=== PATIENT | female | born 1995 | race Caucasian/White ===

== ENCOUNTER 2023-04-24 21:54 | Emergency (ER) | payer OTHER ==
[2023-04-24] MEDS ORDERED: ONDANSETRON 4 MG/2 ML VIAL IVP STA (22:16)
[2023-04-24] MEDS ORDERED: SODIUM CHLORIDE 0.9% 1,000 ML IV ONE (22:16)
[2023-04-24 22:30] LABS: Basophils % (A) 0 %; Eosinophils # (A) 0.1 k/uL (0-0.7); Eosinophils % (A) 1 %; HCT 41.8 % (34.0-46.0); HGB 14.6 gm/dL (11.4-16.0); Lymphocytes # (A) 2.7 k/uL (1.0-4.8); Lymphocytes % (A) 28 %; MCH 31.5 pg (25.0-35.0); Mean Platelet Volume 8.4; Monocytes # (A) 0.4 k/uL (0-1.0); Monocytes % (A) 5 %; Neutrophils # (A) 6.2 k/uL (1.3-7.7); Neutrophils % (A) 65 %; Platelet Count 221 k/uL (150-450); RBC 4.65 m/uL (3.80-5.40); RDW 11.9 % (11.5-15.5); WBC 9.6 k/uL (3.8-10.6)
[2023-04-24 22:46] LABS: ALT 12 U/L (4-34); AST 18 U/L (14-36); African American GFR (CKD) >90 (>60 ml/min/1.73 sqM); Albumin 4.7 g/dL (3.5-5.0); Alkaline Phosphatase 54 U/L (38-126); Anion Gap 10 mmol/L; Blood Urea Nitrogen 8 mg/dL (7-17); Calcium 9.7 mg/dL (8.4-10.2); Carbon Dioxide 22 mmol/L (22-30); Chloride 104 mmol/L (98-107); Glucose 95 mg/dL (74-99); Non-African American GFR(CKD) >90 (>60 ml/min/1.73 sqM); Potassium 3.7 mmol/L (3.5-5.1); Sodium 136 mmol/L (137-145); Total Bilirubin 2.6 mg/dL (0.2-1.3); Total Protein 7.4 g/dL (6.3-8.2)
[2023-04-25] LABS: Appearance,Urine Cloudy (Clear); Bacteria,Urine Occasional /hpf; Bilirubin,Urine Negative (Negative); Blood,Urine Negative (Negative); Color,Urine Light Yellow; Glucose,Urine (UA) Negative (Negative); Ketones,Urine 1+ (Negative); Leukocyte Esterase,Urine Negative (Negative); Mucus,Urine Rare /hpf; Nitrite,Urine Negative (Negative); PH, Urine 6.5 (5.0-8.0); Protein,Urine Negative (Negative); RBC,Urine 2 /hpf (0-5); Squamous Epithelial Cell,Urine 2 /hpf (0-4); Urobilinogen,Urine <2.0 mg/dL (<2.0); WBC,Urine 1 /hpf (0-5)
--- NOTE | 2023-04-25 00:26 | ED ---
General Adult HPI - General Chief complaint: Nausea/Vomiting/Diarrhea Stated complaint: 6 wks preg N/V Time Seen by Provider: 04/24/23 22:15 Source: patient, RN notes reviewed Mode of arrival: ambulatory Limitations: no limitations - History of Present Illness Initial comments: 27-year-old female with no significant past medical history presents the emergency department with chief complaint of nausea and vomiting. Patient reports worsening nausea and vomiting this afternoon. She does report that she is approximately 8 weeks with her first . She denies any fevers, chills, cough, headache, abdominal pain, visual bleeding Vaginal cramping or low back pain. Denies dysuria or hematuria. Patient scheduled to see her [employer] within a few weeks. - Related Data Previous Rx's Medication Instructions Recorded Metoclopramide HCl [Reglan] 10 mg PO TID #15 tablet 04/25/23 Allergies Allergy/AdvReac Type Severity Reaction Status Date / Time No Known Allergies Allergy Verified 04/24/23 22:13 Review of Systems ROS Statement: Those systems with pertinent positive or pertinent negative responses have been documented in the HPI. ROS Other: All systems not noted in ROS Statement are negative. Past Medical History Past Medical History: No Reported History History of Any Multi-Drug Resistant Organisms: None Reported Past Surgical History: Tonsillectomy Past Psychological History: No Psychological Hx Reported Smoking Status: Never smoker Past Alcohol Use History: None Reported Past Drug Use History: None Reported General Exam - General Exam Comments Initial Comments: General: Alert, in no acute distress Head: atraumatic normocephalic. Eyes PERRL, EOMI intact, mucous membranes moist Respiratory: Lungs clear to auscultation bilaterally Cardiovascular: Heart rate regular rate and rhythm Abdominal: Soft without guarding or rebound Extremities: Normal inspection with full range of motion and normal capillary refill Neuroogic: alert and oriented 3, CN II-XII intact, able to ambulate with steady gait Skin: warm dry and intact with normal color Limitations: no limitations Course Vital Signs 04/24/23 22:10 Temperature 98.7 F Pulse Rate 123 H Respiratory 20 Rate Blood Pressure 124/74 O2 Sat by Pulse 99 Oximetry - Reevaluation(s) Reevaluation #1: 04/25/23 00:27 Patient reevaluated and updated on results. She is agreeable with the plan for discharge home. Medical Decision Making - Medical Decision Making Was pt. sent in by a medical professional or institution ([facility], [employer], urgent care, hospital, or group home...) When possible be specific @ -[No] Did you speak to anyone other than the patient for history (EMS, parent, family, police, friend...)? What history was obtained from this source @ -[No] Did you review nursing and triage notes (agree or disagree)? Why? @ -[I reviewed and agree with nursing and triage notes] Were old charts reviewed (outside hosp., previous admission, EMS record, old EKG, old radiological studies, urgent care reports/EKG's, group home records)? Report findings @ -[No old charts were reviewed] Differential Diagnosis (chest pain, altered mental status, abdominal pain women, abdominal pain men, vaginal bleeding, weakness, fever, dyspnea, syncope, headache, dizziness, GI bleed, back pain, seizure, CVA, palpatations, mental health, musculoskeletal)? @ -[not applicable] EKG interpreted by me (3pts min.). @ -[As above] X-rays interpreted by me (1pt min.). @ -[None done] CT interpreted by me (1pt min.). @ -[None done] U/S interpreted by me (1pt. min.). @ -[None done] What testing was considered but not performed or refused? (CT, X-rays, U/S, labs)? Why? @ -[None] What meds were considered but not given or refused? Why? @ -[None] Did you discuss the management of the patient with other professionals ([facility] i.e. [facility], [employer], lab, RT, psych nurse, psychotherapist social worker, cellular tower climber, teacher, morals squad police officer, sample case porter)? Give summary @ -[No] Was smoking cessation discussed for >3mins.? @ -[No] Was critical care preformed (if so, how long)? @ -[No] Were there social determinants of health that impacted care today? How? (Homelessness, low income, unemployed, alcoholism, drug addiction, transport ation, low edu. Level, literacy, decrease access to med. care, half-way, rehab)? @ -[No] Was there de-escalation of care discussed even if they declined (Discuss DNR or withdrawal of care, Hospice)? DNR status @ -[No] What co-morbidities impacted this encounter? (DM, HTN, Smoking, COPD, CAD, Cancer, CVA, ARF, Chemo, Hep., AIDS, mental health diagnosis, sleep apnea, morbid obesity)? @ -[None] Was patient admitted / discharged? Hospital course, mention meds given and route, prescriptions, significant lab abnormalities, going to OR and other pertinent info. @ -Discharged. This is a 27-year-old female presents to the emergency department with nausea and vomiting. Patient and physical exam performed. Physical exam essentially unremarkable. Patient initially tachycardic. Lungs sounds clear to auscultation bilaterally abdomen soft and nontender. Patient had laboratory studies which were essentially unremarkable. Patient was provided with Zofran, 1 L of IV fluids with symptomatic improvement. She is provided with a prescription for Reglan. Return precautions were discussed at length. Recommend close follow-up with PCP in 1-2 days. Patient discharged in stable condition. Case is discussed with AFUA Oconnor who agrees with POC. Undiagnosed new problem with uncertain prognosis? @ -[No] Drug Therapy requiring intensive monitoring for toxicity (Heparin, Nitro, Insulin, Cardizem)? @ -[No] Were any procedures done? @ -[No] Diagnosis/symptom? @ -Nausea and vomiting Acute, or Chronic, or Acute on Chronic? @ -Acute Uncomplicated (without systemic symptoms) or Complicated (systemic symptoms)? @ -Uncomplicated Side effects of treatment? @ -[No] Exacerbation, Progression, or Severe Exacerbation? @ -[No] Poses a threat to life or bodily function? How? (Chest pain, [place], [place], pneumonia, PE, COPD, DKA, ARF, appy, cholecystitis, CVA, Diverticulitis, Homicidal, Suicidal, threat to staff... and all critical care pts) @ -Low likelihood - Lab Data Result diagrams: 04/24/23 22:22 04/24/23 22:22 Lab Results 04/24/23 04/24/23 04/24/23 Range/Units 22:22 22:22 22:22 WBC 9.6 (3.8-10.6) k/uL RBC 4.65 (3.80-5.40) m/uL Hgb 14.6 (11.4-16.0) gm/dL Hct 41.8 (34.0-46.0) % MCV 90.0 (80.0-100.0) fL MCH 31.5 (25.0-35.0) pg MCHC 35.0 (31.0-37.0) g/dL RDW 11.9 (11.5-15.5) % Plt Count 221 (150-450) k/uL MPV 8.4 Neutrophils % 65 % Lymphocytes % 28 % Monocytes % 5 % Eosinophils % 1 % Basophils % 0 % Neutrophils # 6.2 (1.3-7.7) k/uL Lymphocytes # 2.7 (1.0-4.8) k/uL Monocytes # 0.4 (0-1.0) k/uL Eosinophils # 0.1 (0-0.7) k/uL Basophils # 0.0 (0-0.2) k/uL Sodium 136 L (137-145) mmol/L Potassium 3.7 (3.5-5.1) mmol/L Chloride 104 (98-107) mmol/L Carbon Dioxide 22 (22-30) mmol/L Anion Gap 10 mmol/L BUN 8 (7-17) mg/dL Creatinine 0.67 (0.52-1.04) mg/dL Est GFR (CKD-EPI)AfAm >90 (>60 ml/min/1.73 sqM) Est GFR (CKD-EPI)NonAf >90 (>60 ml/min/1.73 sqM) Glucose 95 (74-99) mg/dL Calcium 9.7 (8.4-10.2) mg/dL Total Bilirubin 2.6 H (0.2-1.3) mg/dL AST 18 (14-36) U/L ALT 12 (4-34) U/L Alkaline Phosphatase 54 (38-126) U/L Total Protein 7.4 (6.3-8.2) g/dL Albumin 4.7 (3.5-5.0) g/dL HCG, Quant 68658.8 mIU/mL Urine Color Light Yellow Urine Appearance Cloudy H (Clear) Urine pH 6.5 (5.0-8.0) Ur Specific [place] 1.010 (1.001-1.035) Urine Protein Negative (Negative) Urine Glucose (UA) Negative (Negative) Urine Ketones 1+ H (Negative) Urine Blood Negative (Negative) Urine Nitrite Negative (Negative) Urine Bilirubin Negative (Negative) Urine Urobilinogen <2.0 (<2.0) mg/dL Ur Leukocyte Esterase Negative (Negative) Urine RBC 2 (0-5) /hpf Urine WBC 1 (0-5) /hpf Ur Squamous Epith Cells 2 (0-4) /hpf Urine Bacteria Occasional H (None) /hpf Urine Mucus Rare H (None) /hpf Disposition Clinical Impression: Nausea and vomiting during Disposition: HOME SELF-CARE Condition: Stable Instructions (If sedation given, give patient instructions): Acute Nausea and Vomiting (ED) Additional Instructions: These monitor symptoms closely and return if worsening or persistent Prescriptions: Metoclopramide HCl [Reglan] 10 mg PO TID #15 tablet Is patient prescribed a controlled substance at d/c from ED?: No Referrals: Rodrick Bertrand DO [Primary Care Provider] - 1-2 days Time of Disposition: 00:25
[2023-04-25 00:47] VITALS: BP 122/70; PULSE 80; RESP 18; TEMP 98.4
== END 2023-04-25 00:35 | disposition home or self-care (01) ==
LOC: EC 21:54 → SUPCPDRO 21:54 → EC 04-25 00:35
DX: O21.9 Vomiting of pregnancy, unspecified (principal); Z3A.01 Less than 8 weeks gestation of pregnancy
CPT/HCPCS: 36415; 80053; 85025; 84702; 99284; 96374; 96361; J2405; 81001

== ENCOUNTER 2023-09-07 21:18 | Outpatient (CLI) | payer OTHER ==
[2023-09-07] MEDS ORDERED: ONDANSETRON 4 MG/2 ML VIAL IVP STA (21:45)
[2023-09-07] MEDS: ACETAMINOPHEN TAB 325 MG TAB PO STA (21:58)
[2023-09-07] MEDS: SODIUM CHLORIDE 0.9% 1,000 ML IV ONE (22:00)
[2023-09-07 23:17] VITALS: BP 119/70; PULSE 130; RESP 18; TEMP 98.4
--- NOTE | 2023-10-10 19:34 | P.MSEPDOC ---
Presenting Problems - Arrival Data Date of Arrival on Unit: 09/07/23 Time of Arrival on Unit: 21:18 Mode of Transport: Ambulatory - Complaint OB-Reason for Admission/Chief Complaint: Acute Nausea/Vomiting, Pain Comment: Pt presents with c/o abdominal pain and cramping, rib pain, and back pain 7/10, and x2 vomitting since this AM Medical History - Information : 1 Para: 0 Term: 0 : 0 Abortions: Spontaneous or Elective: 0 Number of Living Children: 0 - Gestational Age Gestational Age by MIRIAM (wks/days): 25 Weeks and 5 Days Review of Systems - Review of Systems Constitutional: No problems Breast: No problems ENT: No problems Cardiovascular: No problems Respiratory: No problems Gastrointestinal: No problems Genitourinary: No problems Musculoskeletal: No problems Neurological: No problems Skin: No problems Vital Signs - Temperature Temperature: 98.4 F Temperature Source: Oral - Pulse Pulse Oximetery Pulse Rate: 130 Pulse Assessment Method: Pulse Oximetry - Respirations Respiratory Rate: 18 Oxygen Delivery Method: Room Air O2 Sat by Pulse Oximetry: 97 - Blood Pressure Right Arm Blood Pressure: 119/70 Blood Pressure Mean: 86 Blood Pressure Source: Automatic Cuff Physician Notification - Physician Notified Physician Notified Date: 09/07/23 Physician Notified Time: 21:39 Physician: Marli Sotelo New Order Received: Yes - Notification Comment Comment: Spoke with Dr. Sotelo, Pt of Dr. Guevara 25 weeks 5 days. Presents to triage with back pain, rib pain, abdominal cramping and pain 7/10 since this morning and vomitting x2 today. By able to tolerate oral fluids. Vitals explained, maternal heart rate in the 130s. No cx, FHR 130s-150s. Order recieved to start IV, L of NS, 650 PO tylenol, and 4mg of IV zofran if needed. RN to update MD after fluid bolus. RN called MD back after bolus given. Tylenol given, pt refused zofran. Heart rate improved in low 100s, no c/o back pain or abdominal cramping. Only c/o rib pain 2/10 at this time. Order recieved to d/c home Maternal Triage Index - Maternal Triage Index Presenting for scheduled procedure w/no complaint: No - Urgent/Priority 2 Urgent Priority 2: No - Prompt/Priority 3 Prompt Priority 3: No - Non-Urgent/Priority 4 Non-Urgent Priority 4: Yes Criteria Met for Priority 4: Pt presents with c/o abdominal pain and cramping, rib pain, and back pain 12/18, and x2 vomitting since this AM Disposition - Disposition OB Disposition: Discharge to home Discharge Date: 09/07/23 Discharge Time: 22:40 I agree with the RN Medical Screening Exam: Yes Case reviewed; plan agreed upon as documented in EMR&OBIX.: Yes Diagnosis: vomitting in
== END 2023-09-07 22:40 | disposition home or self-care (01) ==
LOC: FBPOP 21:18
PROVIDERS: ATTEND Obstetrics & Gynecology
DX: O21.9 Vomiting of pregnancy, unspecified (principal); O26.892 Other specified pregnancy related conditions, second trimester; M54.50 Low back pain, unspecified; R10.9 Unspecified abdominal pain; R07.81 Pleurodynia; Z3A.25 25 weeks gestation of pregnancy
CPT/HCPCS: 96360; 99214

== ENCOUNTER 2023-12-11 16:14 | Inpatient (IN) | payer BC ==
[2023-12-11] MEDS: DINOPROSTONE 10 MG INSERT.ER VAGINAL ONE (16:46)
--- NOTE | 2023-12-11 17:27 | P.HPOB ---
History of Present Illness H&P Date: 12/11/23 Chief Complaint: IUP at 39 and 2, suspected LGA 28-year-old G1, P0 at 39-2/7 weeks, estimated due date of 12/15 presents for induction of labor. Patient has been followed for LGA, last ultrasound done on 11/19 estimated weight 7 pounds 5 ounces 89th percentile. Patient does note good movement denies contractions vaginal bleeding or loss of fluid. On blood work this patient is a low to a positive, rubella status immune, hepatitis B surface and negative, HIV negative, RPR is nonreactive, group B strep culture is negative Review of Systems Constitutional: Denies chills, Denies fatigue, Denies fever Ears, nose, mouth and throat: Denies headache Cardiovascular: Reports leg edema Respiratory: Denies dyspnea Gastrointestinal: Denies constipation, Denies diarrhea, Denies nausea, Denies vomiting Genitourinary: Reports Past Medical History Past Medical History: No Reported History History of Any Multi-Drug Resistant Organisms: None Reported Past Surgical History: Tonsillectomy Smoking Status: Never smoker Medications and Allergies Home Medications Medication Instructions Recorded Confirmed Type Vit No.179/Iron/Folic 1 each PO DAILY 12/11/23 12/11/23 History [ Tablet] Allergies Allergy/AdvReac Type Severity Reaction Status Date / Time No Known Allergies Allergy Verified 12/11/23 16:32 Exam Osteopathic Statement: *. No significant issues noted on an osteopathic structural exam other than those noted in the History and Physical/Consult. Intake and Output 12/11/23 12/11/23 12/11/23 06:59 14:59 22:59 Other: Weight 76.204 kg Targeted physical exam is performed this date General is a well-nourished well- developed female in no acute distress, breathing is noted to be in the nonlabored, heart is regular rate and rhythm, abdomen is gravid, on cervical exam she is 1/70/vertex presentation, heart tones noted to be category 1 and she is not una. Assessment and Plan (1) Term Current Visit: Yes Status: Acute Code(s): Z34.90 - ENCNTR FOR SUPRVSN OF NORMAL , UNSP, UNSP TRIMESTER SNOMED Code(s): 13369741 Plan: 8-year-old G1, P0 at 39 and 2 presents for Cervidil induction of labor secondary to suspected LGA ( US 11/19 EFW 88%ile, ANGELINE 10) Patient is admitted and Cervidil was placed without difficulty. Options for analgesia are discussed including Nubain, nitrous, epidural. Patient states she will consider. Plan of care discussed including rupture of membranes in the morning along with Pitocin for augmentation of labor. Patients are answered and patient states understanding.
[2023-12-11] MEDS ORDERED: OXYTOCIN 10 UNIT/ML 1 ML VIAL IM PRN (17:57)
[2023-12-11] MEDS ORDERED: LIDOCAINE 0.5% (PF) 5 MG/ML (50 ML SDV) SQ PRN (17:57)
[2023-12-11] MEDS ORDERED: TERBUTALINE 1 MG/ML VIAL SQ PRN (17:57)
[2023-12-11] MEDS ORDERED: CARBOPROST TROMETHAMINE 250 MCG/ML 1 ML AMP IM PRN (17:57)
[2023-12-11] MEDS ORDERED: METHYLERGONOVINE 0.2 MG/ML 1 ML AMP IM PRN (17:57)
[2023-12-11] MEDS ORDERED: miSOPROStoL 200 MCG TAB RECTAL PRN (17:57)
[2023-12-11] MEDS ORDERED: TRANEXAMIC 1,000 MG/100ML-NACL 1,000 MG in EMPTY BAG 1 BAG IV PRN (17:57)
[2023-12-11] MEDS ORDERED: miSOPROStoL 200 MCG TAB PO PRN (17:57)
[2023-12-11 18:20] LABS: Basophils % (A) 0 %; Eosinophils % (A) 0 %; HCT 30.8 % (34.0-46.0); HGB 9.9 gm/dL (11.4-16.0); Lymphocytes # (A) 1.2 k/uL (1.0-4.8); Lymphocytes % (A) 19 %; MCH 29.1 pg (25.0-35.0); MCHC 32.3 g/dL (31.0-37.0); MCV 90.3 fL (80.0-100.0); Mean Platelet Volume 11.9; Monocytes # (A) 0.3 k/uL (0-1.0); Monocytes % (A) 5 %; Neutrophils # (A) 4.6 k/uL (1.3-7.7); Neutrophils % (A) 74 %; Platelet Count 187 k/uL (150-450); RBC 3.41 m/uL (3.80-5.40); RDW 14.1 % (11.5-15.5); WBC 6.2 k/uL (3.8-10.6)
[2023-12-12] MEDS: NALBUPHINE 10 MG/ML (10 ML MDV) IV PRN (01:26)
[2023-12-12] MEDS ORDERED: miSOPROStoL 200 MCG TAB RECTAL PRN (06:26)
[2023-12-12] MEDS ORDERED: CARBOPROST TROMETHAMINE 250 MCG/ML 1 ML AMP IM PRN ×2 (06:26→20:01)
[2023-12-12] MEDS ORDERED: miSOPROStoL 200 MCG TAB PO PRN (06:26)
[2023-12-12] MEDS ORDERED: OXYTOCIN 10 UNIT/ML 1 ML VIAL IM PRN (06:26)
[2023-12-12] MEDS ORDERED: LIDOCAINE 0.5% (PF) 5 MG/ML (50 ML SDV) SQ PRN (06:26)
[2023-12-12] MEDS ORDERED: METHYLERGONOVINE 0.2 MG/ML 1 ML AMP IM PRN ×2 (06:26→20:01)
[2023-12-12] MEDS ORDERED: TRANEXAMIC 1,000 MG/100ML-NACL 1,000 MG in EMPTY BAG 1 BAG IV PRN (06:26)
[2023-12-12] MEDS ORDERED: TERBUTALINE 1 MG/ML VIAL SQ PRN (06:26)
[2023-12-12] MEDS: OXYTOCIN 30 UNITS/500 ML NS 30 UNIT in SALINE 1 500ML.BAG IV SCH (06:39)
[2023-12-12] MEDS ORDERED: ROPIVACAINE 5 MG/ML 30 ML VIAL ONE (08:57)
[2023-12-12] MEDS ORDERED: fentaNYL (PF) 50 MCG/ML 5 ML AMP ONE (08:57)
[2023-12-12] MEDS ORDERED: SODIUM CHLORIDE 0.9% 250 ML BAG ONE (08:57)
[2023-12-12] MEDS: LACTATED RINGERS 1,000 ML IV SCH ×2 (10:30→21:25)
[2023-12-12] MEDS: CITRIC ACID-SODIUM CITRATE 15 ML CUP PO ONE (20:20)
[2023-12-12] MEDS ORDERED: OXYTOCIN 30 UNITS/500 ML NS BAG IV ONE (20:26)
[2023-12-12] MEDS ORDERED: diphenhydrAMINE 50 MG/ML 1 ML VIAL ONE (20:26)
[2023-12-12] MEDS ORDERED: MORPHINE SULFATE (PF) 0.3 MG/0.3 ML SYR ONE (20:26)
[2023-12-12] MEDS ORDERED: KETOROLAC 15 MG/ML 1 ML VIAL ONE (20:26)
[2023-12-12] MEDS ORDERED: ONDANSETRON 4 MG/2 ML VIAL ONE (20:26)
[2023-12-12] MEDS ORDERED: DEXAMETHASONE SOD PHOSPHATE 4 MG/ML 1 ML VIAL ONE (20:26)
[2023-12-12] MEDS ORDERED: NALOXONE 0.4 MG/ML 1 ML VIAL IV PRN (21:11)
[2023-12-12] MEDS ORDERED: METOCLOPRAMIDE 5 MG/ML 2 ML VIAL IVP PRN (21:11)
[2023-12-12] MEDS ORDERED: SIMETHICONE 80 MG CHEWABLE PO PRN (21:11)
[2023-12-12] MEDS ORDERED: ONDANSETRON 4 MG/2 ML VIAL IVP PRN (21:11)
[2023-12-12] MEDS ORDERED: ZOLPIDEM 5 MG TAB PO PRN (21:11)
[2023-12-12] MEDS ORDERED: diphenhydrAMINE 25 MG CAP PO PRN (21:11)
[2023-12-12] MEDS ORDERED: diphenhydrAMINE 50 MG CAP PO PRN (21:11)
[2023-12-12] MEDS ORDERED: diphenhydrAMINE 50 MG/ML 1 ML VIAL IVP PRN (21:11)
--- NOTE | 2023-12-12 21:11 | P.OP ---
Date of Procedure: 12/12/23 Preoperative Diagnosis: IUP at 39 weeks, arrest of descent and dilation, maternal request for primary Postoperative Diagnosis: same Procedure(s) Performed: Primary low-transverse section Anesthesia: spinal Surgeon: Pauline Guevara Welt Insole Channeler #1: Galen Lea Estimated Blood Loss (ml): 912 IV fluids (ml): 1,100 Urine output (ml): 100 (Clear yellow) Pathology: none sent Condition: stable Disposition: observation Indications for Procedure: 28-year-old G1, P0 admitted last evening for Cervidil induction at 39-2/7 weeks. Patient had Cervidil placed without difficulty did progress in labor, had spontaneous rupture of membranes through the night. Patient in the morning was noted to be 2 cm very uncomfortable and requested epidural. Epidural was placed by anesthesia. Patient made slow progress today eventually becoming 8 cm. Patient had no further dilation past 8 cm. Patient was counseled on exam and findings and she requested given arrest of for stage of labor. Operative Findings: Viable male infant delivered at 2041, weight of 8 pounds 11 ounces, Apgars of 9 and 9 at 1 and 5 minutes respectively. Normal uterus tubes and ovaries are appreciated Description of Procedure: The patient was prepped and draped in the usual fashion after spinal anesthesia was administered by anesthesia department. A Pfannenstiel incision was made and extended of the abdominal cavity without difficulty. The bladder peritoneum was elevated and incised and reflected distally. A 2 cm incision was made in the transverse plane of the lower uterine segment to enter the uterus at which time clear fluid was noted. The incision was extended in both directions using the bandage scissors. The head was encountered within the field and delivered up and through the incision where the nose and mouth were thoroughly suctioned. Remainder of the was delivered onto the surgical field where the cord was doubly clamped, cut, and the infant was passed for resuscitative measures with weight and Apgars as noted above. The placenta was delivered manually, intact, and was grossly normal with a grossly normal three-vessel cord. The uterus was exteriorized and the interior cavity of the uterus swept of any remaining placental and membranous fragments with a laparotomy sponge. The margins of the incision were grasped with Taylor clamps and the incision closed in 2 layers. First layer was a running locking layer of 0 Vicryl from margin to margin followed by a second layer of imbricating 0 Vicryl from margin to margin. Bleeding was noted on the left lateral incision a [id number] suture was used to obtain hemostasis. Upon further inspection hysterotomy was noted to be hemostatic. Any small points of bleeding were then made hemostatic with the Bovie. Once hemostasis was achieved, the posterior cul-de-sac was suctioned with a guard and the uterine and ovarian findings are as noted above. The uterus was replaced within the abdominal cavity and the gutters swept of any remaining blood fluid or clot. The incision was again reexamined and hemostasis was noted to be excellent. Any small point of bleeding were made hemostatic with the Bovie. Once hemostasis was achieved the parietal peritoneum was loosely reapproximated. The layer of muscles were examined and made hemostatic with the Bovie. Attention was then turned to the fascia which was closed with 0 Vicryl in a running fashion from 1 lateral edge to the other. T the subcutaneous tissues were irrigated, made hemostatic with the Bovie, and reapproximated with a running stitch of 30 Vicryl. The skin was reapproximated with 4-0 Vicryl. Estimated blood loss for the case was approximately 912 mL. All sponge instrument and needle counts are correct. There were no complications. The patient tolerated the procedure well and proceeded to the recovery room in stable condition. Both mother and infant are resting comfortably in recovery.
[2023-12-12] MEDS: ACETAMINOPHEN IV (For NPO) 1,000 MG in EMPTY BAG 1 BAG IVPB SCH (21:45)
[2023-12-13] MEDS: IBUPROFEN IV 800 MG in SODIUM CHLORIDE 0.9% 250 ML IV SCH (01:40)
[2023-12-13] MEDS: diphenhydrAMINE 50 MG/ML 1 ML VIAL IVP PRN (01:54)
[2023-12-13] MEDS: ACETAMINOPHEN TAB 500 MG TAB PO SCH (02:08)
[2023-12-13] MEDS: IBUPROFEN 600 MG TAB PO SCH (03:51)
--- NOTE | 2023-12-13 06:35 | P.PN ---
Progress Note - Text 12/13/23 616am 28-year-old female status post with spinal Duramorph. Patient was seen and evaluated for postop pain control, she has a VAS of 1. She did have nausea vomiting which subsided. She does have pruritus which should subside by the end of the day
[2023-12-13 07:11] LABS: Basophils % (A) 0 %; Eosinophils % (A) 0 %; HCT 25.8 % (34.0-46.0); Lymphocytes # (A) 1.3 k/uL (1.0-4.8); Lymphocytes % (A) 8 %; MCH 28.7 pg (25.0-35.0); MCHC 32.1 g/dL (31.0-37.0); MCV 89.4 fL (80.0-100.0); Mean Platelet Volume 11.9; Monocytes # (A) 0.6 k/uL (0-1.0); Monocytes % (A) 4 %; Neutrophils # (A) 14.8 k/uL (1.3-7.7); Neutrophils % (A) 88 %; Platelet Count 192 k/uL (150-450); RBC 2.89 m/uL (3.80-5.40); RDW 14.4 % (11.5-15.5); WBC 16.8 k/uL (3.8-10.6)
[2023-12-13 07:21] LABS: HGB 8.3 gm/dL (11.4-16.0)
[2023-12-13 08:15] LABS: Large Platelets Present; Polychromasia Present
[2023-12-13] MEDS: SENNOSIDES-DOCUSATE SODIUM 1 EACH TAB PO SCH (08:17)
[2023-12-13] MEDS: PRENATAL VIT-IRON-FOLIC ACID 1 EACH TABLET PO SCH (08:17)
--- NOTE | 2023-12-13 11:26 | P.PNOBGPC ---
Subjective - Subjective Patient reports: Reports appetite normal, Reports voiding normally, Reports pain well controlled, Reports ambulating normally : doing well, nursing well Objective - Vital Signs Latest vital signs: Vital Signs Temp Pulse Resp BP Pulse Ox 12/13/23 08:00 98.3 F 80 16 136/74 12/13/23 04:00 98.8 F 92 16 128/83 95 12/13/23 00:00 83 16 130/82 96 12/12/23 23:13 100 16 134/73 97 12/12/23 22:58 102 H 16 131/64 97 12/12/23 22:43 106 H 16 135/72 97 12/12/23 22:28 86 16 140/81 98 12/12/23 22:13 90 16 144/78 98 12/12/23 21:58 87 16 134/75 98 12/12/23 21:43 92 16 130/70 99 12/12/23 21:28 90 18 135/83 98 12/12/23 21:13 96 18 134/87 Intake and Output 12/12/23 12/13/23 12/13/23 22:59 06:59 14:59 Intake Total 51.600 Output Total 230 Balance 51.600 -230 Intake: Intake, IV Titration 51.600 Amount Oxytocin 30 Units/500 ml 51.600 Ns 30 unit In Saline 1 500ml.bag @ Per Protocol IV .Q0M [facility] Rx#:[id number] Output: Output, Quantitative 230 Blood Loss Other: Voiding Method Indwelling Catheter Indwelling Catheter # Voids 0 - Exam Extremities: Present: normal Abdomen: Present: normal appearance, soft. Absent: distention, tenderness Incision: Present: normal, dry, intact Uterus: Present: normal, firm (The uterine fundus is tonic and minimally tender below the umbilicus.) - Labs Labs: Abnormal Lab Results - Last 24 Hours (Table) 12/13/23 Range/Units 07:00 WBC 16.8 H (3.8-10.6) k/uL RBC 2.89 L (3.80-5.40) m/uL Hgb 8.3 L D (11.4-16.0) gm/dL Hct 25.8 L (34.0-46.0) % Neutrophils # 14.8 H (1.3-7.7) k/uL Assessment and Plan (1) Status post section Current Visit: Yes Status: Acute Code(s): Z98.891 - HISTORY OF UTERINE SCAR FROM PREVIOUS SURGERY SNOMED Code(s): 771690057 Plan: Continue routine and postoperative care. I have encouraged the patient to ambulate in the hallways routinely. I would anticipate discharge home tomorrow pending no complications.
--- NOTE | 2023-12-14 10:31 | P.DS ---
Providers Date of admission: 12/11/23 16:14 Expected date of discharge: 12/14/23 Attending physician: Pauline Guevara Primary care physician: Rodrick Bertrand - Discharge Diagnosis(es) (1) Term Current Visit: Yes Status: Acute (2) Arrest of descent, delivered, current hospitalization Current Visit: Yes Status: Acute (3) Arrest of dilation, delivered, current hospitalization Current Visit: Yes Status: Acute (4) Status post section Current Visit: Yes Status: Acute Hospital Course: 28-year-old 2 para 1-0-1-1 that presented to labor and delivery for Cervidil induction of labor secondary to suspected LGA. Patient had been receiving routine care with myself which have been essentially uncomplicated. Patient was admitted and Cervidil was placed without difficulty. Patient progressed in labor and spontaneous rupture of membranes was appreciated. Patient did become uncomfortable and request epidural. Epidural was placed without difficulty. Patient progressed through labor stalling at 8 cm for 2 to 3 hours. No descent was appreciated throughout the labor process. Exam was discussed with patient and on counseling patient decided to proceed with primary low-transverse section. Patient was taken back to the operating suite where was performed without difficulty. Patient delivered a viable male infant at 2041, weight of 8 pounds 11 ounces. For full details on the please see the dictated operative report. Patient's postoperative course has been uneventful. On this postoperative day #2 she is ambulating and voiding without difficulty. She is tolerating a regular diet without nausea or vomiting. She states her pain is well- controlled. She is breast-feeding without difficulty, lochia is noted to be minimal. She would like discharge home today . Patient Condition at Discharge: Good Plan - Discharge Summary New Discharge Prescriptions: No Action Vit No.179/Iron/Folic [ Tablet] 1 each PO DAILY Discharge Medication List Vit No.179/Iron/Folic [ Tablet] 1 each PO DAILY 12/11/23 [History] Follow up Appointment(s)/Referral(s): Pauline Guevara DO [Doctor of Osteopathic Medicine] - 01/24/24 10:45 am Patient Instructions/Handouts: Vaginal Delivery (GEN), Vaginal Delivery (DC) Activity/Diet/Wound Care/Special Instructions: No intercourse, tampons or tub baths, no driving for two weeks. Call with any fever, shakes or chills, with any pain not alleviated by over the counter meds, or with any quesions or concerns. [id number] ibuprofen 600 mg or 3 tablets every 6 hours as needed for pain. Discharge Disposition: HOME SELF-CARE
[2023-12-14 10:32] VITALS: BP 126/86; PULSE 85; RESP 18; TEMP 97.6
== END 2023-12-14 12:00 | disposition home or self-care (01) | DRG 788 ==
LOC: 4FBP 16:14
PROVIDERS: ADMIT Obstetrics & Gynecology Obstetrics; ATTEND Obstetrics & Gynecology Obstetrics
PROC: 3E033VJ Introduction of Other Hormone into Peripheral Vein, Percutaneous Approach (ICD-10-PCS; 2023-12-12)
PROC: 3E0P7VZ Introduction of Hormone into Female Reproductive, Via Natural or Artificial Opening (ICD-10-PCS; 2023-12-12)
PROC: 10D00Z1 Extraction of Products of Conception, Low, Open Approach (ICD-10-PCS; principal; 2023-12-12 20:10)
DX: O32.4XX0 Maternal care for high head at term, not applicable or unspecified (principal); O62.0 Primary inadequate contractions; O36.63X0 Maternal care for excessive fetal growth, third trimester, not applicable or unspecified; O99.73 Diseases of the skin and subcutaneous tissue complicating the puerperium; L29.9 Pruritus, unspecified; Z37.0 Single live birth; Z3A.39 39 weeks gestation of pregnancy
CPT/HCPCS: 85025; 86850; 86900; 86901